=== PATIENT | male | born 1970 | race Caucasian/White ===

== ENCOUNTER 2017-04-24 15:19 | Emergency (ER) | payer OTHER ==
[~2017-04-24] VITALS: Ht 172.7 cm; Wt 89.2 kg
[2017-04-24 15:31] VITALS: BP 161/110; PULSE 74; TEMP 36.3; O2SAT 97; Ht 172.7 cm; Wt 89.2 kg
[2017-04-24] MEDS ORDERED: XYLOCAINE 1%/SOD BICARB 20 ML VIAL INFIL ONE (16:00)
--- NOTE | 2017-04-24 16:24 | EMERGENCY ROOM VISIT NOTE ---
ED Visit Note First contact with patient: 15:30 CHIEF COMPLAINT: Splinter in the left index finger This 46-year-old white male patient was using a keyboard upstairs in the hospital and got a piece of plastic in the finger under his nail and was unable to remove it. He believes a small piece of the keyboard cover sheared off and is under his nail. Injury occurred about 4 hours ago. Has pain with any pressure on the finger and it is getting a little swollen. PMH: Benign. Recent xylene exposure which is causing temporary hypertension Previous surgeries: Facial reconstruction surgery 1992. Family history: Unremarkable. Parents are living. Social history: Patient is employed as a physical therapist. Lives with his . No tobacco use, no EtOH use. Allergies: NKDA Current medications: Reviewed and filed in patient's chart REVIEW OF SYSTEM: HEENT: No dizziness, visual problems, hearing loss, or tinnitus. There is no difficulty swallowing and no oral lesions are present. PULMONARY: No cough, shortness of breath, sputum production or hemoptysis. CARDIOVASCULAR: No chest pain, palpitations, shortness of breath or peripheral edema. GASTROINTESTINAL: No diarrhea, constipation, nausea, vomiting, or abdominal pain. GENITOURINARY: No dysuria, frequency, urgency or nocturia. NEUROLOGIC: No weakness, muscle tenderness, epilepsy or history of neurological problems. MUSCULOSKELETAL: No history of joint tenderness/swelling. SKIN: No rashes or lesions. ENDOCRINE: No history of diabetes, thyroid disorders, or abnormal hair growth. PHYSICAL EXAM: Vital Signs: Reviewed Nurse's notes. Afebrile. General: Well- developed, well-nourished, middle-aged white male, in no acute distress. Sitting on a bed. Alert and oriented. Skin:Warm and dry with good turgor. No rashes or lesions. No ecchymosis or erythema. The patient is not diaphoretic. No abrasions. There is a linear apparently foreign object embedded in the left index finger underneath the fingernail. No drainage. Musculoskeletal: Patient has intact motor function to the MCP, PIP, and DIP joints. Full terminal extension. Full flexion. Fingernails tender to touch. Neurologic: Gross sensation is intact across the index finger by soft touch. Capillary refill is equal to the other digits. EMERGENCY DEPARTMENT COURSE: After Betadine cleansing and lidocaine digital block anesthesia, iris scissors were used to spread a small portion of the nail away from the nailbed. Splinter was grasped with forceps and removed. Iris scissors were again used to bluntly dissect the nail away from the nailbed at the remainder of his tract. The area was then re-scrubbed with Betadine and irrigated copiously with normal saline area. Bacitracin and a bandage applied. DIAGNOSIS: Splinter Foreign body in the left index finger DISCHARGE INSTRUCTIONS: Patient was educated regarding today's findings. Conservative care measures were discussed. Watch the area for signs of infection such as redness, swelling, or increasing tenderness. Keep the area covered with bacitracin and bandage for 3 days. Tylenol and Motrin every 6 hours as needed for discomfort. Ice and elevate intermittently as needed for discomfort. Return to the ED for any other concerns. He was reassured that I do not suspect bony injury, joint injury, or tendon rupture. Vital Signs Date Time Temp Pulse Resp B/P (MAP) Pulse Ox O2 Delivery O2 Flow Rate FiO2 04/24/17 15:31 36.3 74 14 161/110 97 Room Air Medications Administered Medications (Trade) Dose Ordered Sig/Sandra Route Start Time Stop Time Status Last Admin Dose Admin Lidocaine HCl (Buffered Lidocaine 1% Inj) 20 ml NOW ONCE INFIL 04/24/17 16:00 04/24/17 16:01 DC 04/24/17 15:50 20 ML Departure Information Impression Primary Impression: Foreign body of finger of left hand Dispostion Home / Self-Care Forms WORK / SCHOOL INSTRUCTIONS, HOME CARE DOCUMENTATION FORM, MOTRIN USE, TYLENOL USE, IMPORTANT VISIT INFORMATION Patient Instructions [facility] Additional Instructions Ice and elevate intermittently as needed for pain Tylenol and Motrin every 6 hours as needed for discomfort Return to the ED or follow-up with your PCP for any worsening pain or signs of infection Cleanse daily with soap and water Change your bandage as needed for soiling
== END 2017-04-24 16:13 | disposition home or self-care (01) ==
LOC: C.EDB 15:21 → C.EDD 16:13
DX: S60.451A Superficial foreign body of left index finger, initial encounter (principal); X58.XXXA Exposure to other specified factors, initial encounter